=== PATIENT | female | born 1955 | race Caucasian/White ===

== ENCOUNTER → 2019-12-01 | Outpatient (CLI) | payer BC ==
--- NOTE | 2019-12-17 22:35 | EM ---
EVENT MONITOR AGE: 64 SEX: Female INDICATIONS: Claudication. The patient was monitored for 14 days. The baseline rhythm appeared to be sinus mechanism. The patient did have multiple episodes of paroxysmal atrial tachycardia with narrow complex tachycardia. Beside that, the patient has been maintaining normal sinus mechanism. No evidence of any advanced AV block seen. No evidence of any sinus pause or sinus arrest. The patient did not report any symptoms. CONCLUSION: 1. This is a 14-day event monitor. 2. The baseline rhythm appeared to be sinus mechanism. 3. The patient did have multiple episodes of paroxysmal atrial tachycardia. 4. No evidence of any sinus pause or sinus arrest. 5. The patient reported no symptoms. MMODL / IJN: [id number] /
== END | disposition home or self-care (01) ==
LOC: RADECHMAIN 11:47
PROVIDERS: ATTEND Family Medicine
DX: I47.1 Supraventricular tachycardia (principal)
CPT/HCPCS: 93270

== ENCOUNTER → 2022-05-24 | Outpatient (CLI) | payer MEDICARE, OTHER ==
[2022-05-24 18:02] LABS: HGB 12.3 g/dL (12.0-15.0); MCH 29.6 pg (27.0-32.0); MCHC 31.5 g/dL (32.0-37.0); Mean Platelet Volume 10.5 fL (9.5-12.2); NRBC Per 100 WBC 0 /100 WBCS (0.0-0.0); Platelet Count 400 X 10*3/uL (140-440); RBC 4.15 X 10*6/uL (4.10-5.20)
== END | disposition home or self-care (01) ==
LOC: LABPAT 10:39
PROVIDERS: ATTEND Internal Medicine Interventional Cardiology
DX: Z01.812 Encounter for preprocedural laboratory examination (principal); R94.39 Abnormal result of other cardiovascular function study
CPT/HCPCS: 80051; 82565; 84520; 85027

== ENCOUNTER → 2022-05-28 | Outpatient (CLI) | payer MEDICARE, OTHER ==
[2022-05-28 13:23] LABS: Potassium 4.6 mmol/L (3.5-5.1)
== END | disposition home or self-care (01) ==
LOC: LABPAT 12:13
PROVIDERS: ATTEND Internal Medicine Interventional Cardiology
DX: Z01.812 Encounter for preprocedural laboratory examination (principal); R94.39 Abnormal result of other cardiovascular function study
CPT/HCPCS: 80051; 82565; 84520

== ENCOUNTER 2022-05-29 06:54 | Day surgery (SDC) | payer MEDICARE, OTHER ==
[2022-05-25 15:52] VITALS: BMI 31.1
[~2022-05-29 06:54] MED LIST: ALPRAZolam 0.25 MG TAB PO PRN; ALPRAZolam 0.5 MG TAB PO PRN; ASPIRIN 325 MG TAB PO STA; ATORVASTATIN 80 MG TAB PO STA; HEPARIN SODIUM,PORCINE 10,000 UNIT in SODIUM CHLORIDE 0.9% 1,000 ML IRRIGATION PRN; HEPARIN SODIUM,PORCINE 2,500 UNIT in SODIUM CHLORIDE 0.9% 250 ML IRRIGATION PRN; NITROGLYCERIN SL TABS 0.4 MG TAB SUBLINGUAL PRN; SODIUM CHLORIDE 0.9% 1,000 ML in EMPTY BAG 1 BAG IV SCH
[2022-05-29] MEDS ORDERED: SODIUM CHLORIDE 0.9% 1,000 ML IV ONE (07:06)
[2022-05-29 07:17] VITALS: RESP 16; TEMP 98
[2022-05-29] MEDS ORDERED: VERAPAMIL 2.5 MG/ML 2 ML AMP ONE (08:47)
[2022-05-29] MEDS ORDERED: fentaNYL (PF) 50 MCG/ML 2 ML AMP ONE (09:12)
[2022-05-29] MEDS ORDERED: HEPARIN SODIUM 1,000 UN/ML (10ML VL) ONE (09:12)
[2022-05-29] MEDS ORDERED: fentaNYL (PF) 50 MCG/ML 2 ML AMP IV ONE (09:31)
[2022-05-29] MEDS ORDERED: LIDOCAINE 1% INJ 10MG/ML (5 ML VIAL-PF) SQ ONE (09:32)
[2022-05-29] MEDS ORDERED: VERAPAMIL SYRINGE (5 MG/10 ML) INTRAARTER ONE (09:33)
[2022-05-29] MEDS: HEPARIN SODIUM 1,000 UN/ML (10ML VL) IV ONE ×2 (09:41→09:46)
[2022-05-29] MEDS ORDERED: NITROGLYCERIN 1000MCG/10ML SYRINGE INTRACORON ONE (09:50)
[2022-05-29] MEDS ORDERED: IOPAMIDOL-370 125ML BTL INJ ONE (09:55)
[2022-05-29] MEDS ORDERED: RX INFO: IV CONTRAST WAS GIVEN 1 EACH MISC MISCELLANE PRN (10:02)
--- NOTE | 2022-05-29 10:10 | P.CARDCATH ---
Date of Procedure: 05/29/22 Description of Procedure: Cardiac Catheterization: The patient is a 66-year-old female who presents with symptoms of progressive dyspnea, had an abnormal MPI. Recommendations were made regarding cardiac catheterization, the risks and the complications were discussed with the patient who is in full understanding and agreement. Procedure Description: Patient was brought to geophysical laboratory chief in fasting semi-sedated state after receiving Fentanyl and Benadryl achieiving moderate conscious sedated state. Using Xylo kojo Anesthesia and Seldinger technique, a 6-[place]an sheath was introduced in the right radial artery . Subsequently, selective coronary angiography was performed using a 5-[place]an 3.5 bend Dat catheter. Multiple views of the coronary artery including hemiaxial views were obtained. The right Dat catheter was used to cross the aortic valve and LVEDP was calculated. Following that and after removing the catheter 6-E[place]an CLS 3.5 guiding catheter was introduced and after cannulating the left main a Doppler flow wire was introduced and positioned in the distal LAD. IFR was calculated and pullback was measured. Following that, catheter and sheath were removed. Hemostasis was obtained with deployment of TR band . There was no immediate complication. Patient was returned to room in stable condition. Of note, the patient received a total of 5000 units of intravenous heparin as well as intra-arterial verapamil. Findings: Fluoroscopy: There is calcifications involving the proximal LAD and distal left main Left main: This is a large size vessel, bifurcating into LAD and left circumflex, left main has no evidence of high-grade stenosis. LAD: This is a large size vessel, reaching to the apex giving rise to 2 diagonal branch the first one is larger in caliber and moderate in size. The mid LAD has multiple areas of plaque of 50% extending to the mid segment, the rest of the vessel has no high-grade stenosis Left circumflex: This is a large nondominant vessel giving rise to 4 obtuse marginal branch, the third one is the largest and caliber, the left circumflex and its branches have no evidence of high-grade stenosis RCA: This is a large dominant vessel, bifurcating into PDA and PLV. The proximal RCA has 20-30% plaque with no high-grade stenosis IFR: IFR of the LAD was ranging between 0.95 and 1.00 during pullback. Left Ventriculogram: Not performed Hemodynamics: There was no gradient across the aortic valve , LVEDP was 10-12 mmHg Conclusion: 1. Calcified left main and proximal LAD 2. Moderate disease in the mid LAD in multiple segments with normal IFR consistent with non-hemodynamic significant lesion 3. Mild disease in the RCA 4. Normal LVEDP Recommendations: I have recommended to continue medical therapy with aggressive coronary risks modifications. The findings and the recommendations were discussed with the patient and the family and they were in full understanding and agreement. Duration of sedation is 28 minutes.
[2022-05-29] MEDS ORDERED: SODIUM CHLORIDE 0.9% 1,000 ML IV SCH (10:15)
[2022-05-29] MEDS ORDERED: SODIUM CHLORIDE 0.9% 500 ML IV ONE (13:00)
[2022-05-29 13:09] VITALS: PULSE 92
[2022-05-29 13:36] VITALS: BP 151/78
[2022-05-29] MEDS ORDERED: VERAPAMIL SR 240 MG TABLET.ER PO SCH (21:00)
[2022-05-30] MEDS ORDERED: ASPIRIN 81 MG PO SCH (09:00)
[2022-05-30] MEDS ORDERED: ISOSORBIDE MONONITRATE ER 30 MG TAB.ER.24H PO SCH (09:00)
== END 2022-05-29 13:37 | disposition home or self-care (01) ==
LOC: CATHCVL 06:54 → EDSTATUS 09:00 → CATHCVL 13:37
PROVIDERS: ATTEND Internal Medicine Interventional Cardiology
DX: I25.10 Atherosclerotic heart disease of native coronary artery without angina pectoris (principal); R94.39 Abnormal result of other cardiovascular function study
CPT/HCPCS: 93458; C1769 ×4; C1887; C1894; J2001; J3010; J1644; Q9967; 93571